=== PATIENT | male | born 1995 | race Caucasian/White ===

== ENCOUNTER 2020-03-14 00:11 | Inpatient (IN) ==
[2020-03-14] MEDS ORDERED: MULTI-VITAMIN INFUSION 10 ML, THIAMINE HCL 100 MG, FOLIC ACID 1 MG in SODIUM CHLORIDE 0... IV ONE (00:43)
[2020-03-14] MEDS ORDERED: LORazepam 1 MG/2 ML VIAL IV STA (00:43)
[2020-03-14] MEDS ORDERED: ONDANSETRON INJ 2 MG/ML 2 ML VIAL IV STA (00:43)
--- NOTE | 2020-03-14 00:57 | Emergency Department Note ---
History of Present Illness General Chief complaint: GI Assessment Stated complaint: ALCOHOL POISOING Time Seen by Provider: 03/14/20 00:33 History of Present Illness Maximum Pain Intensity: 10 This is a 24-year-old male that presents to the emergency department via private vehicle with complaints "alcohol poisoning". A history of alcohol abuse. He notes that he was sober for about 1 year and then over the past 1.5 to 2 months he relapsed. He has been consuming about 1.75 L of vodka per day. Patient notes that he has relapsed before. He notes that he has gone through detox before and with previous withdrawals has had seizures. He notes he has had about 4 seizures in the past secondary to alcohol withdrawal. He has had associated nausea and vomiting over the past 2 weeks that often resolves with consuming alcohol. Patient has decreased food intake. Patient denies any fe vers, chills, chest pain or shortness of breath. He does note some epigastric discomfort. With the vomiting he does note there is some blood in this. Current discomfort at this time is rated as a 10/10. Patient is at his last drink of alcohol was about 24 hours ago. Home Medications Medication Instructions Recorded Confirmed Type No Known Home Medications 03/14/20 03/14/20 History Allergies Allergy/AdvReac Type Severity Reaction Status Date / Time buspirone [From BuSpar] AdvReac Tachycardia Verified 03/14/20 01:16 Past Med/Surg History Medical History Anxiety and depression ETOH abuse Withdrawal seizures Surgical History No significant past surgical history Family History (Updated 03/14/20 @ 04:11 by Amanda Díaz DO) Other No significant family history Social History Smoking Status: Current every day smoker Tobacco Type: Cigarettes Second Hand Exposure: No; Hx Alcohol Use: Yes Alcohol type: hard liquor Hx Substance Use: Yes Last Used Substance: Unknown Preferred Language: Gibraltarian Communication Ability: Effective Skidder Loader Required: No Beliefs That Will Affect Care: None Current Living Situation: Alone Feels Safe at Home: Yes Review of Systems A total of 10 systems reviewed and were otherwise negative Physical Exam Vital Signs Vital Signs - 24 hr 11/17/20 00:17 03/14/20 00:30 03/14/20 00:31 Temperature 37.0 C Temperature Source Oral Pulse Rate 104 H 100 H Pulse Rate from SpO2 Sensor Respiratory Rate 18 16 Respiratory Effort / Characteristics Non-Labored Spontaneous Respiratory Depth Normal Respiratory Pattern Regular Blood Pressure 135/90 137/91 Blood Pressure Mean 105 106 Blood Pressure Position Sitting Pulse Oximetry 94 93 93 Oxygen Delivery Method Room Air Room Air Room Air Sepsis Recent Fever Within 48 Hours No Sepsis New/Unexplained Change in Mental Status No Sepsis Action Taken by Nursing No Action Required 03/14/20 01:00 03/14/20 01:30 03/14/20 02:00 Temperature Temperature Source Pulse Rate 110 H 93 H 93 H Pulse Rate from SpO2 Sensor 94 H 92 H Respiratory Rate 24 19 18 Respiratory Effort / Characteristics Respiratory Depth Respiratory Pattern Blood Pressure 146/110 H 118/84 115/77 Blood Pressure Mean 125 91 93 Blood Pressure Position Pulse Oximetry 91 93 Oxygen Delivery Method Room Air Room Air Room Air Sepsis Recent Fever Within 48 Hours Sepsis New/Unexplained Change in Mental Status Sepsis Action Taken by Nursing 03/14/20 02:30 03/14/20 03:00 03/14/20 03:30 Temperature Temperature Source Pulse Rate 90 91 H 94 H Pulse Rate from SpO2 Sensor 90 92 H 95 H Respiratory Rate 15 16 17 Respiratory Effort / Characteristics Respiratory Depth Respiratory Pattern Blood Pressure 117/64 114/79 122/81 Blood Pressure Mean 73 85 94 Blood Pressure Position Pulse Oximetry 90 90 93 Oxygen Delivery Method Room Air Room Air Room Air Sepsis Recent Fever Within 48 Hours Sepsis New/Unexplained Change in Mental Status Sepsis Action Taken by Nursing VITAL SIGNS - Vital signs and nursing notes were reviewed. Stable and afebrile. GENERAL -24-year-old male appearing his stated age who is in no acute distress but appears to not feel well. Communicates well with provider and answers questions appropriately. SKIN - Without rashes. No meningeal or petechial rash. HEAD - NC/AT. EYES - PERRL with EOMI bilaterally. Sclera anicteric. EARS - No deformities of external structures noted on gross examination bilaterally. NOSE - Midline and without cyanosis. No epistaxis or purulent drainage noted. MOUTH/OROPHARYNX - Without perioral cyanosis. NECK - Neck with FROM. No nuchal rigidity. LUNGS - Chest wall symmetric without accessory muscle use, intercostals retracti ons, or central cyanosis. Normal vesicular breath sounds CTA B/L. No wheezes, rales, or rhonchi appreciated. CARDIAC - RRR with S1/S2. No murmur, rubs, or gallops appreciated. ABDOMEN - Abdominal contour normal without pulsations or visible masses. BS normoactive all four quadrants. Generalized diffuse abdominal tenderness. Abdomen is soft and nonrigid. No palpable masses, hepatosplenomegaly, or ascites noted. EXTREMITIES - No clubbing or peripheral cyanosis. No pretibial edema present. +5/5 strength noted in UE/LE bilaterally. NEUROLOGIC - Cranial nerves II through XII grossly intact. Sensory intact to light touch throughout. PSYCH - A&Ox3 and cooperates fully with examiner. Pt is very pleasant and interacts well with examiner. Course Administered Medications Lactated Ringer's (Lr) 1,000 mls @ 125 mls/hr IV .Q8H CELIA Stop: 03/14/20 20:44 Last Admin: 03/14/20 05:15 Dose: 125 mls/hr Documented by: [id number] Discontinued Medications Diazepam (Diazepam 5 Mg Tablet) 10 mg PO NOW ONE Stop: 03/14/20 04:46 Last Admin: 03/14/20 05:14 Dose: 10 mg Documented by: [id number] Lorazepam (Ativan) 1 mg in 2 mls @ 2 mls/min IV NOW STA Stop: 03/14/20 00:44 Last Admin: 03/14/20 00:57 Dose: 2 mls/min Documented by: [id number] Multivitamins 10 ml/ Thiamine HCl 100 mg/ Folic Acid 1 mg/Sodium Chloride 1,011.2 mls @ 1,011.2 mls/hr IV .Q1H ONE Stop: 03/14/20 01:42 Last Infusion: 03/14/20 02:07 Dose: 0 mls/hr Documented by: [id number] Admin: 03/14/20 00:59 Dose: 999 mls/hr Documented by: [id number] Ondansetron HCl (Ondansetron Inj 2 Mg/Ml 2 Ml Vial) 4 mg IV NOW STA Stop: 03/14/20 00:44 Last Admin: 03/14/20 00:57 Dose: 4 mg Documented by: [id number] Medical Decision Making Laboratory Data Result diagrams: 03/14/20 00:35 03/14/20 00:35 Lab Results 03/14/20 03/14/20 03/14/20 Range/Units 00:35 00:35 00:35 WBC 5.24 (4.8-10.8) K/uL RBC 5.42 (4.7-6.1) M/uL Hgb 16.9 (14.0-18.0) g/dL Hct 48.9 (42-52) % MCV 90.2 (80-100) fL MCH 31.2 (25-34) pg MCHC 34.6 (32-36) g/dL RDW Std Deviation 51.4 H (36.4-46.3) fL RDW Coeff of Sari 15.7 H (11.5-14.5) % Plt Count 215 (130-400) K/uL MPV 9.8 (7.4-10.4) fL Immature Gran % (Auto) 0.4 % Neut % (Auto) 48.2 % Lymph % (Auto) 42.9 % Dare % (Auto) 7.1 % Eos % (Auto) 0.6 % Baso % (Auto) 0.8 % Neut # (Auto) 2.53 (1.4-6.5) K/uL Lymph # (Auto) 2.25 (1.2-3.4) K/uL Dare # (Auto) 0.37 (0.11-0.59) K/uL Eos # (Auto) 0.03 (0-0.5) K/uL Baso # (Auto) 0.04 (0-0.2) K/uL Immature Gran # (Auto) 0.02 (0.00-0.02) K/uL PT 11.3 (9.0-12.0) Seconds INR 1.1 (0.9-1.1) APTT 31.0 (21.0-31.0) Seconds PTT Ratio 1.1 Sodium (136-145) mmol/L Potassium (3.5-5.1) mmol/L Chloride (98-107) mmol/L Carbon Dioxide (21-32) mmol/L Anion Gap (3-11) BUN (7-18) mg/dl Creatinine (0.6-1.4) mg/dl Est Cr Clr Drug Dosing ml/min Est GFR ( Amer) Est GFR (Non-Af Amer) BUN/Creatinine Ratio (10-20) Glucose (70-99) mg/dl Calcium (8.5-10.1) mg/dl Magnesium (1.8-2.4) mg/dl Total Bilirubin (0.2-1) mg/dl AST (15-37) U/L ALT (12-78) U/L Alkaline Phosphatase (45-117) U/L Troponin I (0-0.045) ng/ml Total Protein (6.4-8.2) gm/dl Albumin (3.4-5.0) gm/dl Globulin (2.5-4.0) gm/dl Albumin/Globulin Ratio (0.9-2) Lipase (73-393) U/L TSH (0.300-4.500) uIu/ml Ethyl Alcohol mg/dL 316.7 H (0-3) mg/dl COVID-19 Eval Order SARS-CoV-2, RNA, NAAT (NEGATIVE) 03/14/20 03/14/20 03/14/20 Range/Units 00:35 02:50 02:50 WBC (4.8-10.8) K/uL RBC (4.7-6.1) M/uL Hgb (14.0-18.0) g/dL Hct (42-52) % MCV (80-100) fL MCH (25-34) pg MCHC (32-36) g/dL RDW Std Deviation (36.4-46.3) fL RDW Coeff of Sari (11.5-14.5) % Plt Count (130-400) K/uL MPV (7.4-10.4) fL Immature Gran % (Auto) % Neut % (Auto) % Lymph % (Auto) % Dare % (Auto) % Eos % (Auto) % Baso % (Auto) % Neut # (Auto) (1.4-6.5) K/uL Lymph # (Auto) (1.2-3.4) K/uL Dare # (Auto) (0.11-0.59) K/uL Eos # (Auto) (0-0.5) K/uL Baso # (Auto) (0-0.2) K/uL Immature Gran # (Auto) (0.00-0.02) K/uL PT (9.0-12.0) Seconds INR (0.9-1.1) APTT (21.0-31.0) Seconds PTT Ratio Sodium 140 (136-145) mmol/L Potassium 3.6 (3.5-5.1) mmol/L Chloride 101 (98-107) mmol/L Carbon Dioxide 28 (21-32) mmol/L Anion Gap 11.0 (3-11) BUN 12 (7-18) mg/dl Creatinine 0.90 (0.6-1.4) mg/dl Est Cr Clr Drug Dosing 161.7 ml/min Est GFR ( Amer) 136.1 Est GFR (Non-Af Amer) 117.5 BUN/Creatinine Ratio 13.0 (10-20) Glucose 98 (70-99) mg/dl Calcium 8.8 (8.5-10.1) mg/dl Magnesium 2.3 (1.8-2.4) mg/dl Total Bilirubin 0.5 (0.2-1) mg/dl AST 171 H (15-37) U/L ALT 151 H (12-78) U/L Alkaline Phosphatase 105 (45-117) U/L Troponin I < 0.015 (0-0.045) ng/ml Total Protein 8.1 (6.4-8.2) gm/dl Albumin 4.6 (3.4-5.0) gm/dl Globulin 3.5 (2.5-4.0) gm/dl Albumin/Globulin Ratio 1.3 (0.9-2) Lipase 193 (73-393) U/L TSH 2.860 (0.300-4.500) uIu/ml Ethyl Alcohol mg/dL (0-3) mg/dl COVID-19 Eval Order Covid19 IDNow [facility] SARS-CoV-2, RNA, NAAT NEGATIVE (NEGATIVE) MDM Narrative Patient was seen and evaluated as above in room A3. Review was performed of maria elena sing notes and vital signs. After obtaining a thorough history and physical examination the above work up was performed. Patient presents to us today with a history of alcohol abuse now currently sober for the past 24 hours. He appears to be experiencing alcohol withdrawal. He has been vomiting, and notes blood now in the vomit. He notes a history of seizures from this. No seizures with this current withdrawal episode. Vital signs stable but he is mildly tachycardic. Given the patient's presentation options of care were discussed. Banana bag, IV fluids, IV Ativan was ordered. No leukocytosis or anemia. No emergent metabolic disturbance. Mild elevation of AST and ALT. Alcohol level 316. Covid negative as this was ordered per current protocol for all admitted patients. Case discussed with the hospitalist. He will be admitted for further evaluation and management. Please refer to further documentation regarding his stay. While in the department, I personally reevaluated the patient several times and each time the patient was found to be resting comfortably. The patient was educated upon management, educated upon todays findings/results, educated upon importance of follow up from today's visit, educated upon symptoms in which to return, had questions answered prior to discharge, verbalized understanding, and was discharged home in good condition. EKG was reviewed by myself and found to be Normal Sinus Rhythm at a rate of 94 beats per minute and per my interpretation reveals no ST elevation. QTc 457. No previous for comparison. An order was placed for continuous cardiac monitoring. The monitor shows a rate of 94 with sinus rhythm. GCS: 15 In the evaluation and treatment of this patient the following differential diagnoses were entertained: Alcohol withdrawal, gastritis, esophageal varices, ulcer, perforation, among others. Impression & Plan ETOH abuse, Abnormal LFTs, Vomiting, Alcohol withdrawal Discharge Plan Visit Data Chief Complaint: GI Assessment Stated Complaint: ALCOHOL POISOING ED Provider: Dilia Mahoney ED Midlevel Provider: Lobo Neves Discharge Problem: ETOH abuse, Abnormal LFTs, Vomiting, Alcohol withdrawal Patient Disposition: Admitted As Inpatient Condition: Good Discharge Instructions Interventions: ED Discharge Assessment Last Done: 03/14/20 04:23
[2020-03-14 00:58] LABS: Basophils # (auto) 0.04 K/uL (0-0.2); Basophils % (auto) 0.8 %; Eosinophils # (auto) 0.03 K/uL (0-0.5); Eosinophils % (auto) 0.6 %; Hematocrit (blood only) 48.9 % (42-52); Hemoglobin 16.9 g/dL (14.0-18.0); Immature Granulocytes # (auto) 0.02 K/uL (0.00-0.02); Immature Granulocytes % (auto) 0.4 %; Lymphocytes # (auto) 2.25 K/uL (1.2-3.4); Lymphocytes % (auto) 42.9 %; Mean Corpuscular Hemoglobin 31.2 pg (25-34); Mean Corpuscular Hgb Conc 34.6 g/dL (32-36); Mean Corpuscular Volume 90.2 fL (80-100); Mean Platelet Volume 9.8 fL (7.4-10.4); Monocytes # (auto) 0.37 K/uL (0.11-0.59); Monocytes % (auto) 7.1 %; Neutrophils # (auto) 2.53 K/uL (1.4-6.5); Neutrophils % (auto) 48.2 %; Platelet Count 215 K/uL (130-400); RDW Coefficient of Variation 15.7 % (11.5-14.5); RDW Standard Deviation 51.4 fL (36.4-46.3); Red Blood Count 5.42 M/uL (4.7-6.1); White Blood Count 5.24 K/uL (4.8-10.8)
[2020-03-14 01:04] LABS: Blood Urea Nitrogen 12 mg/dl (7-18); Carbon Dioxide 28 mmol/L (21-32); Chloride 101 mmol/L (98-107); Potassium 3.6 mmol/L (3.5-5.1); Sodium 140 mmol/L (136-145)
[2020-03-14 01:05] LABS: Alanine Aminotransferase 151 U/L (12-78); Albumin Level 4.6 gm/dl (3.4-5.0); Aspartate Aminotransferase 171 U/L (15-37); Calcium 8.8 mg/dl (8.5-10.1); Creatinine Clr Calc Pharmacy 161.7 ml/min; Est GFR (African American) 136.1; Est GFR (Non-African American) 117.5; Glucose 98 mg/dl (70-99); Lipase 193 U/L (73-393); Magnesium 2.3 mg/dl (1.8-2.4)
[2020-03-14 01:09] LABS: INR 1.1 (0.9-1.1); Partial Thromboplastin Ratio 1.1; Prothrombin Time 11.3 Seconds (9.0-12.0)
[2020-03-14 01:16] LABS: Albumin Globulin Ratio 1.3 (0.9-2); Alkaline Phosphatase 105 U/L (45-117); Bilirubin,Total 0.5 mg/dl (0.2-1); Globulin 3.5 gm/dl (2.5-4.0); Total Protein 8.1 gm/dl (6.4-8.2); Troponin I < 0.015 ng/ml (0-0.045)
--- NOTE | 2020-03-14 04:24 | History & Physical Report ---
Date of Service March 14, 2020 Assessment & Plan (1) ETOH abuse: 24yo male with history of EtOH abuse, withdrawal seizures and reported DTs in the past presenting with EtOH withdrawal. Patient reports drinking 1.75L of Vodka daily - last drink approximately 27 hours ago. -Admit to PCU -Valium 10mg PO x 1 dose now -Seizure precautions per protocol -Monitor closely for withdrawal -Check B12, Folate levels -Ativan IV as needed -Thiamine 100mg IV daily -Folic Acid 1mg IV daily -Patient may benefit from additional psychiatric and rehab services after medically cleared Present on Admission?: Yes (2) Anxiety and depression: Patient currently not taking medications. -Continue to monitor Present on Admission?: Yes (3) Abnormal LFTs: Patient with elevated ZCI=874, YFS=653. INR/Bili/Platelets WNL. Most likely secondary to EtOH effects -Repeat LFTs -Check acetaminophen level -Consider liver imaging if worsening Present on Admission?: Yes (4) Vomiting: Patient reports significant nausea and vomiting, PO intolerance. Question of possible hematemesis or coffee ground emesis - not seen in ER -Protonix 40mg IV BID -Monitor for possible UGIB -Zofran PRN F/E/N - Banana bag administered in ER, continue LR at 125mL/hr x 2 liters, monitor electrolytes, NPO for now - may advance diet as tolerated as mental status improves Ppx - Low risk for DVT Code - Full Dispo - Admit to PCU Present on Admission?: Yes History of Present Illness Chief Complaint: EtOH withdrawal Primary Care Provider: NO PCP Jose Roberto Craven is a 24yo C male with history of Anxiety and Depression, EtOH abuse presenting with EtOH withdrawal. Patient with longstanding history of heavy EtOH use - states that he first began drinking heavily at the age of 16. He has history of both DTs and withdrawal seizures. He has been through EtOH rehabilitation on 3 previous occasions. He does consider himself and alcoholic and has participated in AA in the past. Currently does not go to meetings and does not have a local sponsor. Patient had been sober for about one year. However, he had a break-up with his significant other appx 2 months ago and started drinking again. He reports he has been drinking 1.75L of Vodka daily. Last drink was 03/13/20 at 01:00. He has had persistent nausea with multiple episodes of vomiting, ?hematemesis or coffee ground material. He has had diarrhea and constipation and has been unable to tolerate oral intake for the last month. He reports mild withdrawal symptoms currently - mild shaking and flushing. ER Course: Banana Bag, Ativan x 1mg, Zofran x 4mg Allergies Allergy/AdvReac Type Severity Reaction Status Date / Time buspirone [From BuSpar] AdvReac Tachycardia Verified 03/14/20 01:16 Home Medications Medication Instructions Recorded Confirmed Type No Known Home Medications 03/14/20 03/14/20 History Past Med/Surg History Medical History (Updated 03/14/20 @ 04:20 by Amanda Díaz DO) Anxiety and depression ETOH abuse Withdrawal seizures Surgical History (Updated 03/14/20 @ 04:11 by Amanda Díaz DO) No significant past surgical history Family History (Updated 03/14/20 @ 04:11 by Amanda Díaz DO) Other No significant family history Social History (Updated 03/14/20 @ 04:11 by Amanda Díaz DO) Smoking Status: Current every day smoker Tobacco Type: Cigarettes Hx Alcohol Use: Yes Hx Substance Use: No Preferred Language: Cambodian Feels Safe at Home: Yes Review of Systems Review of Systems: All systems reviewed & are unremarkable except as noted in HPI & below Physical Exam Physical Exam: General: patient resting comfortably, NAD, non-toxic in appearance, ill-kempt, AA&O x 3, intoxicated Skin: warm, dry, intact, no rashes or lesions HEENT: NC/AT, PERRL, EOMI, anicteric sclera, conjunctiva without injection, external ear normal to inspection and nontender, nares patent, moist mucus membranes, dentition intact, no oropharyngeal lesions, neck supple, trachea midline, no LAD, no thyromegaly, no JVD Heart: +S1/S2, regular, no m/r/g Lungs: equal air entry bilaterally, no rales/rhonchi/wheezes Abd: +BS, soft, NT/ND, no masses/organomegaly/ascites Ext: warm, 2+ pulses in UE/LE bilaterally, no clubbing/cyanosis or edema Neuro: nonfocal, patient AA&O x 3, speech intact, no facial droop, moving all extremities on command with equal strength 5/5, no tremors Results & Data Results & Data ([facility]) Vital Signs (Past 12 Hours) Vital Signs Temp Pulse Resp BP Pulse Ox 03/14/20 03:30 94 H 17 122/81 93 03/14/20 03:00 91 H 16 114/79 90 03/14/20 02:30 90 15 117/64 90 03/14/20 02:00 93 H 18 115/77 93 03/14/20 01:30 93 H 19 118/84 91 03/14/20 01:00 110 H 24 146/110 H 03/14/20 00:31 93 03/14/20 00:30 100 H 16 137/91 93 03/14/20 00:17 37.0 C 104 H 18 135/90 94 Laboratory Results Lab Results 03/14/20 03/14/20 03/14/20 Range/Units 00:35 00:35 00:35 WBC 5.24 (4.8-10.8) K/uL RBC 5.42 (4.7-6.1) M/uL Hgb 16.9 (14.0-18.0) g/dL Hct 48.9 (42-52) % MCV 90.2 (80-100) fL MCH 31.2 (25-34) pg MCHC 34.6 (32-36) g/dL RDW Std Deviation 51.4 H (36.4-46.3) fL RDW Coeff of Sari 15.7 H (11.5-14.5) % Plt Count 215 (130-400) K/uL MPV 9.8 (7.4-10.4) fL Immature Gran % (Auto) 0.4 % Neut % (Auto) 48.2 % Lymph % (Auto) 42.9 % [place] % (Auto) 7.1 % Eos % (Auto) 0.6 % Baso % (Auto) 0.8 % Neut # (Auto) 2.53 (1.4-6.5) K/uL Lymph # (Auto) 2.25 (1.2-3.4) K/uL [place] # (Auto) 0.37 (0.11-0.59) K/uL Eos # (Auto) 0.03 (0-0.5) K/uL Baso # (Auto) 0.04 (0-0.2) K/uL Immature Gran # (Auto) 0.02 (0.00-0.02) K/uL PT 11.3 (9.0-12.0) Seconds INR 1.1 (0.9-1.1) APTT 31.0 (21.0-31.0) Seconds PTT Ratio 1.1 Sodium (136-145) mmol/L Potassium (3.5-5.1) mmol/L Chloride (98-107) mmol/L Carbon Dioxide (21-32) mmol/L Anion Gap (3-11) BUN (7-18) mg/dl Creatinine (0.6-1.4) mg/dl Est Cr Clr Drug Dosing ml/min Est GFR ( Amer) Est GFR (Non-Af Amer) BUN/Creatinine Ratio (10-20) Glucose (70-99) mg/dl Calcium (8.5-10.1) mg/dl Magnesium (1.8-2.4) mg/dl Total Bilirubin (0.2-1) mg/dl AST (15-37) U/L ALT (12-78) U/L Alkaline Phosphatase (45-117) U/L Troponin I (0-0.045) ng/ml Total Protein (6.4-8.2) gm/dl Albumin (3.4-5.0) gm/dl Globulin (2.5-4.0) gm/dl Albumin/Globulin Ratio (0.9-2) Lipase (73-393) U/L TSH (0.300-4.500) uIu/ml Ethyl Alcohol mg/dL 316.7 H (0-3) mg/dl COVID-19 Eval Order SARS-CoV-2, RNA, NAAT (NEGATIVE) 03/14/20 03/14/20 03/14/20 Range/Units 00:35 02:50 02:50 WBC (4.8-10.8) K/uL RBC (4.7-6.1) M/uL Hgb (14.0-18.0) g/dL Hct (42-52) % MCV (80-100) fL MCH (25-34) pg MCHC (32-36) g/dL RDW Std Deviation (36.4-46.3) fL RDW Coeff of Sari (11.5-14.5) % Plt Count (130-400) K/uL MPV (7.4-10.4) fL Immature Gran % (Auto) % Neut % (Auto) % Lymph % (Auto) % [place] % (Auto) % Eos % (Auto) % Baso % (Auto) % Neut # (Auto) (1.4-6.5) K/uL Lymph # (Auto) (1.2-3.4) K/uL [place] # (Auto) (0.11-0.59) K/uL Eos # (Auto) (0-0.5) K/uL Baso # (Auto) (0-0.2) K/uL Immature Gran # (Auto) (0.00-0.02) K/uL PT (9.0-12.0) Seconds INR (0.9-1.1) APTT (21.0-31.0) Seconds PTT Ratio Sodium 140 (136-145) mmol/L Potassium 3.6 (3.5-5.1) mmol/L Chloride 101 (98-107) mmol/L Carbon Dioxide 28 (21-32) mmol/L Anion Gap 11.0 (3-11) BUN 12 (7-18) mg/dl Creatinine 0.90 (0.6-1.4) mg/dl Est Cr Clr Drug Dosing 161.7 ml/min Est GFR ( Amer) 136.1 Est GFR (Non-Af Amer) 117.5 BUN/Creatinine Ratio 13.0 (10-20) Glucose 98 (70-99) mg/dl Calcium 8.8 (8.5-10.1) mg/dl Magnesium 2.3 (1.8-2.4) mg/dl Total Bilirubin 0.5 (0.2-1) mg/dl AST 171 H (15-37) U/L ALT 151 H (12-78) U/L Alkaline Phosphatase 105 (45-117) U/L Troponin I < 0.015 (0-0.045) ng/ml Total Protein 8.1 (6.4-8.2) gm/dl Albumin 4.6 (3.4-5.0) gm/dl Globulin 3.5 (2.5-4.0) gm/dl Albumin/Globulin Ratio 1.3 (0.9-2) Lipase 193 (73-393) U/L TSH 2.860 (0.300-4.500) uIu/ml Ethyl Alcohol mg/dL (0-3) mg/dl COVID-19 Eval Order Covid19 [facility]Now [facility] SARS-CoV-2, RNA, NAAT NEGATIVE (NEGATIVE) PG Care Time/CCT Total # of Minutes Spent Total Time Spent with Patient: Total time spent is greater than 50% in coordination of care (as documented) at patient's floor/unit and/or counseling patient: Coding Level of Care Code 07747 Initial Inpt Care Lvl 3 Diagnoses ETOH abuse F10.10 Anxiety and depression F41.9; F32.9 Abnormal LFTs R94.5 Vomiting R11.2 Vomiting type: unspecified Vomiting Intractability: non-intractable Nausea presence: with nausea (1) Vomiting Vomiting type: unspecified Vomiting Intractability: non-intractable Nausea presence: with nausea Qualified Code(s): R11.2 - Nausea with vomiting, unspecified
[2020-03-14] MEDS ORDERED: ONDANSETRON INJ 2 MG/ML 2 ML VIAL IV PRN (04:45)
[2020-03-14] MEDS ORDERED: diazePAM 5 MG TABLET PO ONE (04:45)
[2020-03-14] MEDS: LACTATED RINGER'S 1,000 ML IV SCH ×2 (05:15→13:04)
--- NOTE | 2020-03-14 07:34 | XRay Report ---
SINGLE VIEW CHEST CLINICAL HISTORY: Vomiting. Alcohol withdrawal. FINDINGS: An AP, portable, upright chest radiograph is obtained. No prior studies are available for c omparison at the time of dictation. The cardiomediastinal silhouette is unremarkable. The lungs and pleural spaces are clear. No pneumothorax is seen. The bony thorax is grossly intact. IMPRESSION: No active disease in the chest. ACT 112: Negative or not required by law. Electronically signed by: Harman Ansari M.D. 03/14/2020 7:33 AM
[2020-03-14] MEDS: PANTOprazole 40 MG in SYRINGE 0 ML IV SCH ×2 (07:50→21:32)
[2020-03-14] MEDS: FOLIC ACID 1 MG in SYRINGE 9.8 ML IV SCH (07:50)
[2020-03-14] MEDS: THIAMINE HCL 100 MG in SYRINGE 9 ML IV SCH (07:50)
[2020-03-14] MEDS ORDERED: GABAPENTIN 1200MG ALCOHOL WITHDRAWAL LOAD PO STA (08:16)
--- NOTE | 2020-03-14 08:16 | Hospitalist Progress Note ---
Date of Service March 14, 2020 Assessment & Plan (1) ETOH abuse: 24yo male with history of EtOH abuse, withdrawal seizures and reported DTs in the past presenting with EtOH withdrawal. Patient reports drinking 1.75L of Vodka daily - last drink approximately 27 hours prior to admission -Due to previous history of DTs was started on gabapentin protocol in addition to the AURA S Ativan. He has not required significant Ativan during the day -Seizure precautions per protocol -Thiamine 100mg IV daily -Folic Acid 1mg IV daily -Patient may benefit from additional psychiatric and rehab services after medically cleared, patient has been inpatient in both [facility] and [email or web address] (2) Anxiety and depression: Patient currently not taking medications. -Continue to monitor (3) Abnormal LFTs: Patient with elevated HTJ=578, QCM=890. INR/Bili/Platelets WNL. Most likely secondary to EtOH effects -Repeat LFTs acetaminophen level undetectable Monitor repeat serology for LFTs (4) Vomiting: Patient reports significant nausea and vomiting, PO intolerance. Question of possible hematemesis or coffee ground emesis - not seen in ER -Protonix 40mg IV BID -Monitor for possible UGIB -Zofran PRN F/E/N - Banana bag administered in ER, continue LR at 125mL/hr x 2 liters, monitor electrolytes, NPO for now - may advance diet as tolerated as mental status improves Ppx - Low risk for DVT Code - Full Dispo - Admit to PCU Admission and Anticipated Discharge Date Admission Date: March 14, 2020 Subjective pt is not significantly tremulous or agitated, he does realate to going into full blown DT in the past, however he has stable VS and exam at this point. He states he started drinking due to a breakup with a significant other Review of Systems Review of Systems: Mild distress and fatigue no headache, blurry or double vision no speech or swallowing issues no chest pain, pressure or palpitations no shortness of breath, cough or wheezes Minor central abdominal pain, but no nausea or vomiting, no melena no dysuria, hematuria or frequency no focal joint pain or swelling no back pain, CVA tenderness or radicular pain no bruising, bleeding or rashes no focal signs of weakness or numbness or altered sensation Does have anxiety and depression at this point time Physical Exam Physical Exam: The patient appeared well nourished and normally developed. Vital signs as documented. Head exam is normocephalic atraumatic no scleral icterus Neck is without JVD, thyromegaly, or carotid bruits. Lungs are clear to auscultation, no focal loss of breath sounds Cardiac exam, Rhythm is regular.. No murmurs, rubs or gallops. Abdominal exam reveals normal bowel sounds, soft non tender, no masses Extremities are nonedematous and both pedal pulses are present Neurologic exam is alert and oriented, no focal loss of strength or sensation no tremor no shakiness Skin is without bruises or rashes Psychologically is with concerns for anxiety & depression. Results & Data Results & Data ([facility]) Vital Signs (Past 12 Hours) Vital Signs Temp Pulse Pulse Resp BP BP Pulse Ox 03/14/20 07:08 97.9 F 98 H 18 117/76 93 03/14/20 04:55 97.9 F 16 123/77 96 03/14/20 04:00 90 14 111/72 92 03/14/20 03:30 94 H 17 122/81 93 03/14/20 03:00 91 H 16 114/79 90 03/14/20 02:30 90 15 117/64 90 03/14/20 02:00 93 H 18 115/77 93 03/14/20 01:30 93 H 19 118/84 91 03/14/20 01:00 110 H 24 146/110 H 03/14/20 00:31 93 03/14/20 00:30 100 H 16 137/91 93 03/14/20 00:17 98.6 F 104 H 18 135/90 94 PG Care Time/CCT Total # of Minutes Spent Total Time Spent with Patient: Total time spent is greater than 50% in coordination of care (as documented) at patient's floor/unit and/or counseling patient: Coding Level of Care Code 79640 Subseq Hosp Care Lvl 3 Diagnoses ETOH abuse F10.10 Anxiety and depression F41.9; F32.9 Abnormal LFTs R94.5 Vomiting R11.10
[2020-03-14] MEDS ORDERED: GABAPENTIN 600 MG TAB PO ONE (08:30)
[2020-03-14 10:07] LABS: Amphetamines+Metham, Urine Neg (Neg); Barbiturates, Urine Neg (Neg); Benzodiazepine, Urine Pos (Neg); Cocaine, Urine Neg (Neg); MDMA (Ecstacy), Urine Neg (Neg); Methadone, Urine Neg (Neg); Opiate, Urine Neg (Neg); Phencyclidine, Urine Neg (Neg)
[2020-03-14] MEDS: LORazepam 1 MG TAB PO PRN ×3 (12:59→22:55)
[2020-03-14] MEDS: GABAPENTIN 600 MG TAB PO SCH ×2 (14:43→21:32)
--- NOTE | 2020-03-14 16:52 | Electrocardiogram Report ---
Test Reason : Blood Pressure : / mmHG Vent. Rate : 094 BPM Atrial Rate : 094 BPM P-R Int : 170 ms QRS Dur : 104 ms QT Int : 366 ms P-R-T Axes : 049 057 047 degrees QTc Int : 457 ms Normal sinus rhythm Normal ECG No previous ECGs available Confirmed by Dale Mann [id number] on 03/14/2020 4:51:41 PM Referred By: REFERRED SELF Confirmed By:Dale Mann
[2020-03-15] MEDS ORDERED: GABAPENTIN 600 MG TAB PO SCH (06:00)
[2020-03-15 08:38] LABS: Albumin Level 3.6 gm/dl (3.4-5.0); BUN Creatinine Ratio 10.4 (10-20); Bilirubin Direct 0.4 mg/dl (0-0.2); Calcium 8.9 mg/dl (8.5-10.1); Creatinine Clr Calc Pharmacy 173.6 ml/min; Est GFR (African American) 140.1; Est GFR (Non-African American) 120.8; Potassium 3.6 mmol/L (3.5-5.1)
[2020-03-15] MEDS: PANTOprazole 40 MG in SYRINGE 0 ML IV SCH (08:42)
[2020-03-15] MEDS: FOLIC ACID 1 MG in SYRINGE 9.8 ML IV SCH (08:43)
[2020-03-15] MEDS: THIAMINE HCL 100 MG in SYRINGE 9 ML IV SCH (08:43)
[2020-03-15 08:46] LABS: Bilirubin,Total 1.2 mg/dl (0.2-1); Total Protein 6.6 gm/dl (6.4-8.2)
--- NOTE | 2020-03-15 16:32 | Discharge Summary ---
Date of Service March 15, 2020 Admission HPI Per Admitting Provider Jose Roberto Craven is a 24yo C male with history of Anxiety and Depression, EtOH abuse presenting with EtOH withdrawal. Patient with longstanding history of heavy EtOH use - states that he first began drinking heavily at the age of 16. He has history of both DTs and withdrawal seizures. He has been through EtOH rehabilitation on 3 previous occasions. He does consider himself and alcoholic and has participated in AA in the past. Currently does not go to meetings and does not have a local sponsor. Patient had been sober for about one year. However, he had a break-up with his significant other appx 2 months ago and started drinking again. He reports he has been drinking 1.75L of Vodka daily. Last drink was 03/13/20 at 01:00. He has had persistent nausea with multiple episodes of vomiting, ?hematemesis or coffee ground material. He has had diarrhea and constipation and has been unable to tolerate oral intake for the last month. He reports mild withdrawal symptoms currently - mild shaking and flushing. ER Course: Banana Bag, Ativan x 1mg, Zofran x 4mg Principal Diagnosis alcohol withdrawal Discharge Exam The patient appeared well Vital signs as documented. Lungs are clear to auscultation and appear unlabored Cardiac exam, Rhythm is regular.. No murmurs, rubs or gallops. Abdominal exam reveals normal bowel sounds, soft non tender, no masses Extremities are nonedematous and both pedal pulses are normal. Neurologic exam is alert and oriented, no focal loss of strength or sensation Skin is without bruises or rashes Psychologically is without concerns for anxiety or depression. Discharge Data Allergies Allergy/AdvReac Type Severity Reaction Status Date / Time buspirone [From BuSpar] AdvReac Tachycardia Verified 03/14/20 01:16 Consultations 03/14/20 01:28 ED Decision to Admit Stat Hospital Course (1) ETOH abuse: 24yo male with history of EtOH abuse, withdrawal seizures and reported DTs in the past presenting with EtOH withdrawal. Patient reports drinking 1.75L of Vodka daily - last drink approximately 27 hours prior to admission -Due to previous history of DTs was started on gabapentin protocol, will be discharged on tapering doses, given 7 10 mg librium tabs and information for outpt aa meetings (2) Anxiety and depression: Patient currently not taking medications. -pt is not interested in restarting these (3) Abnormal LFTs: slowly coming down as expected acetaminophen level undetectable Monitor repeat serology for LFTs (4) Vomiting: resolved Code - Full Total Time Total Time Spent Total Time Spent (In Minutes): It required greater than 30 minutes to prepare this patient for discharge Discharge Plan Discharge Items Patient Disposition: Home - Self-Care Reason For Visit: ETOH WITHDRAWAL Discharge Diagnosis: alcohol withdrawal Condition on Discharge: Good Activity: Per Instructions section Non-emergency contact: Primary Care Provider Call non-emergency contact if: your symptoms worsen Follow-up/Referrals: PCP,NO [Primary Care Provider] - Diet: Regular Addtl Attending Provider Instructions: please contact AA as soon as able follow up with your primary care in one week Pending Studies at Discharge: No Stand-Alone Forms: My [employer], Smoking Cessation Medications and DC Order Prescriptions: New gabapentin 600 mg tablet 600 mg PO UD Qty: 12 RF: 0 chlordiazepoxide HCl 10 mg capsule 10 mg PO TID PRN (Reason: anxiety) Qty: 7 RF: 0 No Action No Known Home Medications RF: 0 Discharge Orders: Discharge Order (Routine); Ordered 03/15/20 Ordered By: Domingo Benitez/Other Patient Handouts: Alcoholism How to be Part of the ..., Alcoholism Resources Admission Data Admit Date/Time: 03/14/20 03:41 Attending Provider: Domingo Irwin Admit Provider: Amanda Díaz Primary Care Provider: PCP,NO Other Providers: Amanda Díaz Other Interventions: Discharge Summary Assessment (RN) Last Done: 03/15/20 10:29 Coding Level of Care Code D/C Day Management >30 mins Diagnoses ETOH abuse F10.10 Anxiety and depression F41.9; F32.9 Abnormal LFTs R94.5 Vomiting R11.10
[2020-03-16 08:07] LABS: 7-Aminoclonaz, Confirm NEGATIVE ng/mL (<25); Hydro-Alp Ur, GC/MS NEGATIVE ng/mL (<25); Hydroxyethylflurazepam, Conf NEGATIVE ng/mL (<50); Hydroxymidazolam Ur, GC/MS NEGATIVE ng/mL (<50); Hydroxytriazolam NEGATIVE ng/mL (<50); Lorazepam, Ur GC/MS 634 ng/mL (<50); Nordiazepam, Confirm NEGATIVE ng/mL (<50); Oxazepam Ur, GC/MS NEGATIVE ng/mL (<50); Temazepam, Confirm 99 ng/mL (<50)
[2020-03-16] MEDS ORDERED: GABAPENTIN 600 MG TAB PO SCH (10:00)
[2020-03-17] MEDS ORDERED: GABAPENTIN 600 MG TAB PO SCH (22:00)
== END 2020-03-15 10:53 | disposition home or self-care (01) | DRG 897 ==
LOC: ED 00:11 → SUATTDRO 03:41 → 2S 03:41

== ENCOUNTER 2020-03-24 12:11 | Inpatient (IN) ==
[2020-03-24] MEDS ORDERED: ATIVAN IV ALCOHOL WITHDRAWL IV PRN (12:44)
[2020-03-24] MEDS ORDERED: LORazepam 3 MG/6 ML VIAL IV PRN (12:44)
[2020-03-24] MEDS ORDERED: LORazepam 1 MG/2 ML VIAL IV PRN (12:44)
[2020-03-24] MEDS ORDERED: MULTI-VITAMIN INFUSION 10 ML, THIAMINE HCL 100 MG, FOLIC ACID 1 MG in SODIUM CHLORIDE 0... IV ONE (12:44)
[2020-03-24] MEDS ORDERED: LORazepam 2 MG/4 ML VIAL IV PRN (12:44)
--- NOTE | 2020-03-24 13:10 | Emergency Department Note ---
Impression & Plan Alcohol withdrawal, Withdrawal seizures, Hypomagnesemia, Dehydration, Hypokalemia ED Provider Note NAME: DHARA ROBERTS AGE: 24 SEX: M : 1995 ARRIVES VIA: Walk-In INFORMANT: Patient, ED PROVIDER(S): Bill Gore MD Chief Complaint: Alcohol withdrawal, seizure HPI: Patient does present with concern for alcohol withdrawal and the possibility of seizure. The patient does have a prior history of drinking 1.75 L of vodka per day. Patient had had clinical sobriety for approximately 1 year relapse approximately a month and a half ago due to some personal issues. The patient states that he was admitted to the hospital discharged was feeling improved and the patient was feeling bad this morning around 03 100 and drinks of gin to try to improve his shakiness. The patient was found on the ground after a presumptive seizure per the patient. Patient does complain of some formication and visual hallucinations. The patient states he denies any SI, HI. Patient was seen on March 14. Patient was discharged on March 15. Patient reportedly was started on gabapentin protocol and discharged on Librium taper doses. ROS: See HPI for pertinent positives and negatives. A total of 10 systems were reviewed and otherwise negative. Past medical history: See below Surgical history: See below Social history: See below Physical Exam: GENERAL: Anxious in appearance, mildly distressed. EYE EXAM: Normal conjunctiva. PERRL, no anisocoria and EOM's grossly intact w/o pain. NECK: Supple, no nuchal rigidity, no adenopathy, non-tender. No signs of meningismus. LUNGS: Clear to auscultation. Normal chest wall mechanics. HEART: NSR, no MRG. ABDOMEN: Abdomen soft, non-tender, normo-active bowel sounds, no masses, no rebound or guarding. BACK: No CVA TTP. SKIN: No rashes and no bruising. UPPER EXTREMITIES: Bilateral upper extremity tremors noted no extinction with intention, otherwise upper extremities are grossly normal. LOWER EXTREMITIES: Grossly normal, no edema. NEURO EXAM: A&O x3, cranial nerves II-XII grossly intact, normal speech, moves all 4 extremities on command w/o issue. [Good finger to nose, no drift, no sensory deficits.] Differential diagnoses: Infection, dehydration, metabolic abnormality, hypo/hyperglycemia, electrolyte disturbance, anemia, hypoxia, cardiac sources, intracerebral event, toxicologic, neurologic, as well as other pathologies. Course: Patient was seen and evaluated the bedside. Full history physical exam was performed. EKG: Indication: Weakness Imaging Studies: Radiology results as stated below per my review in the radiologist's interpretation: Cardiac monitoring: An order was placed for continuous cardiac monitoring. The monitor shows a rate of 102 with sinus rhythm. MDM: Patient does present with concern for possible alcohol withdrawal related seizures. Blood work was obtained patient was given banana bag ,Valium, and as needed Ativan. Patient has a nonfocal neurologic exam denies any infectious symptoms does not meningitic. Do not believe he requires CT of the head or LP at this time. The patient did relate that he never picked up his Librium taper at discharge as the patient does not have any money to obtain this. Patient was ordered additional Valium and antiemetics. The patient has a normal white count with a hemoglobin of 14. The patient's platelet count is tracely abnormal at 129. The patient's kidney function is unremarkable with slight anion gap at 12 and hypokalemia 3.3. Patient does have changes in his liver function testing which is likely consistent with the patient's alcohol abuse. The patient did have a positive alcohol level although tracely positive at this time. Salicylate and acetaminophen negative. Rapid Covid negative. Given the patient's delirium and associated alcohol use I did recommend that the patient be admitted to the medicine service. I did speak with Dr. Mcdowell and the patient was admitted to the medicine service. Magnesium and potassium replacement were ordered. Critical Care: I have personally spent 47 minutes of critical care time in direct management of this patient. This includes bedside care, interpretation of diagnostic studies, and testing, discussion with consultants, patient, and family members, and other require inpatient management activities. This 47 minutes is in excess of all separately billable procedures. 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 Beliefs That Will Affect Care: None Current Living Situation: Alone Feels Safe at Home: Yes Assistive Devices: None Allergies Allergies Allergy/AdvReac Type Severity Reaction Status Date / Time hydroxyzine [From Vistaril] AdvReac Severe Tachycardia Unverified 03/24/20 14:47 buspirone [From BuSpar] AdvReac Tachycardia Verified 03/14/20 01:16 Home Meds Previous Rx's Medication Instructions Recorded chlordiazepoxide HCl 10 mg PO TID PRN #7 cap 03/15/20 gabapentin 600 mg PO UD #12 tab 03/15/20 Results & Data (ED) Vital Signs Vital Signs - 24 hr 03/24/20 12:39 03/24/20 13:06 03/24/20 13:35 Temperature 36.5 C Temperature Source Oral Pulse Rate 91 H Pulse Rate [Right Finger] 102 H 91 H Respiratory Rate 18 16 20 Respiratory Effort / Characteristics Non-Labored Spontaneous Non-Labored Non-Labored Respiratory Depth Normal Normal Normal Respiratory Pattern Regular Blood Pressure 149/92 H Blood Pressure [Right Arm] 151/89 H 141/93 H Blood Pressure Mean 111 Blood Pressure Mean [Right Arm] 109 109 Pulse Oximetry 95 96 97 Oxygen Delivery Method Room Air Room Air Room Air Oxygen Flow Rate Sepsis Recent Fever Within 48 Hours No Sepsis New/Unexplained Change in Mental Status No Sepsis Action Taken by Nursing No Action Required 03/24/20 13:49 03/24/20 14:15 03/24/20 14:48 Temperature Temperature Source Pulse Rate 88 Pulse Rate [Right Finger] 106 H 90 95 H Respiratory Rate 20 18 18 Respiratory Effort / Characteristics Non-Labored Respiratory Depth Normal Respiratory Pattern Blood Pressure Blood Pressure [Right Arm] 126/81 122/77 127/82 Blood Pressure Mean Blood Pressure Mean [Right Arm] 96 92 97 Pulse Oximetry 97 94 96 Oxygen Delivery Method Room Air Nasal Cannula Nasal Cannula Oxygen Flow Rate 2 Sepsis Recent Fever Within 48 Hours Sepsis New/Unexplained Change in Mental Status Sepsis Action Taken by Nursing 03/24/20 15:43 03/24/20 17:04 03/24/20 18:06 Temperature Temperature Source Pulse Rate Pulse Rate [Right Finger] 108 H 96 H 92 H Respiratory Rate 24 18 16 Respiratory Effort / Characteristics Non-Labored Respiratory Depth Normal Respiratory Pattern Blood Pressure Blood Pressure [Right Arm] 128/95 130/90 140/88 Blood Pressure Mean Blood Pressure Mean [Right Arm] 106 103 105 Pulse Oximetry 96 94 95 Oxygen Delivery Method Room Air Room Air Room Air Oxygen Flow Rate Sepsis Recent Fever Within 48 Hours Sepsis New/Unexplained Change in Mental Status Sepsis Action Taken by Nursing 03/24/20 18:45 Temperature Temperature Source Pulse Rate Pulse Rate [Right Finger] 97 H Respiratory Rate 12 Respiratory Effort / Characteristics Respiratory Depth Respiratory Pattern Blood Pressure Blood Pressure [Right Arm] 132/84 Blood Pressure Mean Blood Pressure Mean [Right Arm] 100 Pulse Oximetry 96 Oxygen Delivery Method Room Air Oxygen Flow Rate Sepsis Recent Fever Within 48 Hours Sepsis New/Unexplained Change in Mental Status Sepsis Action Taken by Fdc Medications Current Medication List: was personally reviewed by me Laboratory Data Attestation: I reviewed the patient's lab results. Result diagrams: 03/24/20 13:21 03/24/20 13:21 Lab Results 03/24/20 03/24/20 03/24/20 Range/Units 13:21 13:21 13:21 WBC 5.12 (4.8-10.8) K/uL RBC 4.60 L (4.7-6.1) M/uL Hgb 14.4 (14.0-18.0) g/dL Hct 41.6 L (42-52) % MCV 90.4 (80-100) fL MCH 31.3 (25-34) pg MCHC 34.6 (32-36) g/dL RDW Std Deviation 51.2 H (36.4-46.3) fL RDW Coeff of Sari 15.5 H (11.5-14.5) % Plt Count 129 L (130-400) K/uL MPV 9.9 (7.4-10.4) fL Immature Gran % (Auto) 0.2 % Neut % (Auto) 80.5 % Lymph % (Auto) 7.4 % Bullitt % (Auto) 11.5 % Eos % (Auto) 0.0 % Baso % (Auto) 0.4 % Neut # (Auto) 4.12 (1.4-6.5) K/uL Lymph # (Auto) 0.38 L (1.2-3.4) K/uL Bullitt # (Auto) 0.59 (0.11-0.59) K/uL Eos # (Auto) 0.00 (0-0.5) K/uL Baso # (Auto) 0.02 (0-0.2) K/uL Immature Gran # (Auto) 0.01 (0.00-0.02) K/uL Sodium 137 (136-145) mmol/L Potassium 3.3 L (3.5-5.1) mmol/L Chloride 100 (98-107) mmol/L Carbon Dioxide 25 (21-32) mmol/L Anion Gap 12.0 H (3-11) BUN 12 (7-18) mg/dl Creatinine 0.89 (0.6-1.4) mg/dl Est Cr Clr Drug Dosing 163.5 ml/min Est GFR ( Amer) 136.8 Est GFR (Non-Af Amer) 118.0 BUN/Creatinine Ratio 14.0 (10-20) Glucose 79 (70-99) mg/dl Calcium 8.8 (8.5-10.1) mg/dl Phosphorus 2.8 (2.5-4.9) mg/dl Magnesium 1.3 L (1.8-2.4) mg/dl Total Bilirubin 1.1 H (0.2-1) mg/dl AST 120 H (15-37) U/L ALT 98 H (12-78) U/L Alkaline Phosphatase 89 (45-117) U/L Total Protein 7.8 (6.4-8.2) gm/dl Albumin 4.3 (3.4-5.0) gm/dl Globulin 3.5 (2.5-4.0) gm/dl Albumin/Globulin Ratio 1.2 (0.9-2) TSH 1.650 (0.300-4.500) uIu/ml Salicylates < 1.7 L (2.8-20) mg/dl Acetaminophen < 2 L (10-30) ug/ml Ethyl Alcohol mg/dL (0-3) mg/dl 03/24/20 Range/Units 13:21 WBC (4.8-10.8) K/uL RBC (4.7-6.1) M/uL Hgb (14.0-18.0) g/dL Hct (42-52) % MCV (80-100) fL MCH (25-34) pg MCHC (32-36) g/dL RDW Std Deviation (36.4-46.3) fL RDW Coeff of Sari (11.5-14.5) % Plt Count (130-400) K/uL MPV (7.4-10.4) fL Immature Gran % (Auto) % Neut % (Auto) % Lymph % (Auto) % Bullitt % (Auto) % Eos % (Auto) % Baso % (Auto) % Neut # (Auto) (1.4-6.5) K/uL Lymph # (Auto) (1.2-3.4) K/uL Bullitt # (Auto) (0.11-0.59) K/uL Eos # (Auto) (0-0.5) K/uL Baso # (Auto) (0-0.2) K/uL Immature Gran # (Auto) (0.00-0.02) K/uL Sodium (136-145) mmol/L Potassium (3.5-5.1) mmol/L Chloride (98-107) mmol/L Carbon Dioxide (21-32) mmol/L Anion Gap (3-11) BUN (7-18) mg/dl Creatinine (0.6-1.4) mg/dl Est Cr Clr Drug Dosing ml/min Est GFR ( Amer) Est GFR (Non-Af Amer) BUN/Creatinine Ratio (10-20) Glucose (70-99) mg/dl Calcium (8.5-10.1) mg/dl Phosphorus (2.5-4.9) mg/dl Magnesium (1.8-2.4) mg/dl Total Bilirubin (0.2-1) mg/dl AST (15-37) U/L ALT (12-78) U/L Alkaline Phosphatase (45-117) U/L Total Protein (6.4-8.2) gm/dl Albumin (3.4-5.0) gm/dl Globulin (2.5-4.0) gm/dl Albumin/Globulin Ratio (0.9-2) TSH (0.300-4.500) uIu/ml Salicylates (2.8-20) mg/dl Acetaminophen (10-30) ug/ml Ethyl Alcohol mg/dL 10.0 H (0-3) mg/dl Administered Medications Magnesium Sulfate/Dextrose (Magnesium Sulfate / D5w) 1 gm in 100 mls @ 50 mls/hr IV Q2H CELIA Stop: 03/24/20 21:25 Last Admin: 03/24/20 19:44 Dose: 50 mls/hr Documented by: [id number] Infusion: 03/24/20 19:44 Dose: 50 mls/hr Documented by: [id number] Admin: 03/24/20 18:43 Dose: 50 mls/hr Documented by: [id number] Discontinued Medications Diazepam (Diazepam 5 Mg/Ml Inj 10ml Vial) 5 mg IV NOW STA Stop: 03/24/20 12:45 Last Admin: 03/24/20 13:07 Dose: 5 mg Documented by: [id number] Diazepam (Diazepam 5 Mg/Ml Inj 10ml Vial) 5 mg IV NOW STA Stop: 03/24/20 14:56 Last Admin: 03/24/20 15:08 Dose: 5 mg Documented by: [id number] Multivitamins 10 ml/ Thiamine HCl 100 mg/ Folic Acid 1 mg/Sodium Chloride 1,011.2 mls @ 500 mls/hr IV .Q2H2M ONE Stop: 03/24/20 14:45 Last Infusion: 03/24/20 15:50 Dose: 0 mls/hr Documented by: [id number] Admin: 03/24/20 13:33 Dose: 500 mls/hr Documented by: [id number] Lorazepam (Ativan) 1 mg in 2 mls @ 2 mls/min IV UD PRN; Protocol PRN Reason: EtOH Withdrawl AWSS Score 6,7 Stop: 04/23/20 12:43 Last Admin: 03/24/20 13:58 Dose: 2 mls/min Documented by: [id number] Sodium Chloride (Nss 1000ml) 1,000 mls @ 999 mls/hr IV .Q1H1M ONE Stop: 03/24/20 17:47 Last Admin: 03/24/20 16:15 Dose: 999 mls/hr Documented by: [id number] Ondansetron HCl (Ondansetron Inj 2 Mg/Ml 2 Ml Vial) 4 mg IV NOW STA Stop: 03/24/20 14:57 Last Admin: 03/24/20 15:08 Dose: 4 mg Documented by: [id number] Discharge Plan Visit Data Chief Complaint: Alcohol Withdrawal Stated Complaint: ALCOHOL WITHDRAWAL ED Provider: Bill Gore Discharge Problem: Alcohol withdrawal, Withdrawal seizures, Hypomagnesemia, Dehydration, Hypokalemia Patient Disposition: Admitted As Inpatient Discharge Instructions Interventions: ED Discharge Assessment Last Done: 03/24/20 19:51 Discharge Problem: Alcohol withdrawal Qualifiers: Complication of substance-induced condition: with delirium Qualified Code(s): F10.231 - Alcohol dependence with withdrawal delirium Withdrawal seizures Qualifiers: Complication of substance-induced condition: with delirium Qualified Code(s): F19.231 - Other psychoactive substance dependence with withdrawal delirium
[2020-03-24 13:38] LABS: Basophils # (auto) 0.02 K/uL (0-0.2); Basophils % (auto) 0.4 %; Hematocrit (blood only) 41.6 % (42-52); Hemoglobin 14.4 g/dL (14.0-18.0); Immature Granulocytes # (auto) 0.01 K/uL (0.00-0.02); Immature Granulocytes % (auto) 0.2 %; Lymphocytes # (auto) 0.38 K/uL (1.2-3.4); Lymphocytes % (auto) 7.4 %; Mean Corpuscular Hemoglobin 31.3 pg (25-34); Mean Corpuscular Hgb Conc 34.6 g/dL (32-36); Mean Corpuscular Volume 90.4 fL (80-100); Mean Platelet Volume 9.9 fL (7.4-10.4); Monocytes # (auto) 0.59 K/uL (0.11-0.59); Monocytes % (auto) 11.5 %; Neutrophils # (auto) 4.12 K/uL (1.4-6.5); Neutrophils % (auto) 80.5 %; Platelet Count 129 K/uL (130-400); RDW Coefficient of Variation 15.5 % (11.5-14.5); RDW Standard Deviation 51.2 fL (36.4-46.3); White Blood Count 5.12 K/uL (4.8-10.8)
[2020-03-24 14:03] LABS: Acetaminophen < 2 ug/ml (10-30); Salicylate < 1.7 mg/dl (2.8-20)
[2020-03-24 14:04] LABS: Albumin Level 4.3 gm/dl (3.4-5.0); Calcium 8.8 mg/dl (8.5-10.1); Creatinine Clr Calc Pharmacy 163.5 ml/min; Est GFR (African American) 136.8; Magnesium 1.3 mg/dl (1.8-2.4); Potassium 3.3 mmol/L (3.5-5.1)
[2020-03-24 14:12] LABS: Albumin Globulin Ratio 1.2 (0.9-2); Bilirubin,Total 1.1 mg/dl (0.2-1); Globulin 3.5 gm/dl (2.5-4.0); Phosphorus 2.8 mg/dl (2.5-4.9); Thyroid Stimulating Hormone 1.65 uIu/ml (0.300-4.500); Total Protein 7.8 gm/dl (6.4-8.2)
[2020-03-24] MEDS ORDERED: ONDANSETRON INJ 2 MG/ML 2 ML VIAL IV STA (14:56)
[2020-03-24] MEDS ORDERED: SODIUM CHLORIDE 0.9% 1000ML 1,000 ML IV ONE (16:47)
[2020-03-24] MEDS: MAGNESIUM SULFATE / D5W 1 GM/100 ML BAG IV SCH ×2 (18:43→19:44)
--- NOTE | 2020-03-24 18:53 | History & Physical Report ---
Date of Service March 24, 2020 Assessment & Plan (1) Alcohol withdrawal: Unclear history as patient reports last alcohol drink 10 days ago but given concerning history of alcohol withdrawal seizures and potentially not reliable history will treat for alcohol withdrawal. Librium tapering dose. Ativan PRN Gabapentin loading dose. Seizure protocol (2) Withdrawal seizures: Possible history of this therefore will monitor overnight on PCU. (3) Dehydration: Creatinine/BUN at baseline. Clinically dry. Banana bag given in ER. Nausea anticipated to improve with alcohol withdrawal medications above. If unable to take PO start IV fluids. (4) Hypomagnesemia: Mg level 1.3. Mg sulphate 2g IV given. Repeat with AM labs. (5) Hypokalemia: K 3.3 K Cl 20 meq IV given in ER. Monitor with am labs. (6) Anxiety and depression: Consult psychiatry as tried multiple medications without success in the past. Previously under psychiatry but lost to follow up per patient. (7) GERD (gastroesophageal reflux disease): Famotidine 20mg PO daily Admission and Anticipated Discharge Date Admission Date: 03/24/2020 History of Present Illness Primary Care Provider: NO PCP Jose Roberto Craven is a 24 year old male with alcohol use disorder who presents to the ER after concern for alcohol withdrawal. He was recently admitted for the same here from March 14-2019 and was discharged home with a PRN dose of Librium and gabapentin. Unfortunately he did not sampler pickup these medications as he reports the cost was too high and he is waiting for some more money to come in on March 29. He started getting shakes and tremors with nausea the same night he was discharged home. He reports it has been getting progressively worse since then. He denies any alcohol intake other than trying a few sips this morning to help with the alcohol withdrawal tremors. Main symptom of nausea and vomiting. No new abdominal pain, melena or bright red blood in stool. He reports cycling through constipation and diarrhea which is not unusual for him. His alcohol withdrawal symptoms including nausea, insomnia, anxiety, tremors have been getting progressively worse since discharge. Around 3am this morning he started having auditory hallucination and his friend noticed he was passed out and he had bitten his lips. He felt groggy similar to when he has had similar seizures in the past. Friend did not witness any seizure like activity. He usually drinks 1.75L vodka a day prior to his last admission. He smokes 3-5 cigarettes/day. He denies any illicit substance abuse. In the ER due to concern for alcohol withdrawal seizures he was given diazepam 5mg IV and lorazepam 1mg IV. He continues to have some minor tremors. He was referred to medicine for ongoing management for alcohol withdrawal. Allergies Allergy/AdvReac Type Severity Reaction Status Date / Time hydroxyzine [From Vistaril] AdvReac Severe Tachycardia Unverified 03/24/20 14:47 buspirone [From BuSpar] AdvReac Tachycardia Verified 03/14/20 01:16 Home Medications Medication Instructions Recorded Confirmed Type chlordiazepoxide HCl 10 mg PO TID PRN #7 cap 03/15/20 03/24/20 Rx gabapentin 600 mg PO UD #12 tab 03/15/20 03/24/20 Rx Past Med/Surg History Medical History Anxiety and depression ETOH abuse Withdrawal seizures Surgical History No significant past surgical history Family History Other No significant family history Social History Smoking Status: Never smoker Tobacco Type: Cigarettes Second Hand Exposure: No; Do You Dip or Chew Tobacco: No; Tobacco Cessation Education Requested by Patient: No Hx Alcohol Use: Yes Alcohol type: hard liquor Hx Substance Use: Yes Last Used Substance: Unknown Last Used Substance Other:: years ago Preferred Language: Yoruba Communication Ability: Effective Deep Tissue Massage Therapist Required: No Beliefs That Will Affect Care: None Current Living Situation: Alone Current Living Situation Comment: has 2 roomates Other Information That Helps Us Care for You: No Feels Safe at Home: Yes Safety Concerns: Feels Safe At This Time Assistive Devices: None Assistive Devices Comment: has hearing aids but has not worn in 1 1/2 yrs Review of Systems Review of Systems: All systems reviewed & are unremarkable except as noted in HPI & below Gastrointestinal: + abdominal pain (right sided), + nausea, + vomiting and + change in stools Physical Exam Constitutional: well developed and well nourished; no acute distress Eyes: PERRL, conjunctivae normal, anicteric sclerae ENMT: external ear and nose normal, oropharynx normal Neck: trachea midline, no thyromegaly Respiratory: normal respiratory effort, lungs clear to auscultation Cardiovascular: RRR, no murmur, no edema Gastrointestinal (Abdomen): Inspection/Auscultation: abdomen normal to inspection and normal bowel sounds; abdomen not distended Percussion/Palpation: + abdomen tender (RLQ (constant since started to drink alcohol again, no worse than usual)) and abdomen soft; no guarding and abdomen not rigid Musculoskeletal: no cyanosis or clubbing, extremities motor strength 5/5 Skin: no rashes, warm and dry Neurologic: moves all extremities and awake Speech / Cognition: normal speech Motor/Sensory: + tremor (postural mild); no pronator drift Psychiatric: Orientation: alert and oriented x 3 Eye Contact: + fair eye contact Affect: + anxious affect Mood: + anxious mood Hallucinations: no auditory hallucinations and no visual hallucinations Genitourinary: no CVA tenderness Results & Data Results & Data ([facility]) Vital Signs (Past 12 Hours) Vital Signs Temp Pulse Pulse Resp BP BP Pulse Ox 03/24/20 18:45 97 H 12 132/84 96 03/24/20 18:06 92 H 16 140/88 95 03/24/20 17:04 96 H 18 130/90 94 03/24/20 15:43 108 H 24 128/95 96 03/24/20 14:48 95 H 18 127/82 96 03/24/20 14:15 88 90 18 122/77 94 03/24/20 13:49 106 H 20 126/81 97 03/24/20 13:35 91 H 20 141/93 H 97 03/24/20 13:06 102 H 16 151/89 H 96 03/24/20 12:39 36.5 C 91 H 18 149/92 H 95 Diagnostic Findings SINGLE VIEW CHEST IMPRESSION: No active disease in the chest. Code Status & VTE Plan Code Status Full VTE Prophylaxis Plan VTE Prophylaxis will be ordered: No Reason for no VTE drug order: Treatment not indicated Reason for no VTE mechanical prophylaxis: Treatment not indicated PG Care Time/CCT Total # of Minutes Spent Total Time Spent with Patient: Total time spent is greater than 50% in coordination of care (as documented) at patient's floor/unit and/or counseling patient: Coding Level of Care Code 40195 Initial Inpt Care Lvl 3 Diagnoses Alcohol withdrawal F10.239 Withdrawal seizures F19.231; R56.9 Complication of substance-induced condition: with delirium Dehydration E86.0 Hypomagnesemia E83.42 Hypokalemia E87.6 Anxiety and depression F41.9; F32.9 GERD (gastroesophageal reflux disease) K21.9 (1) Withdrawal seizures Complication of substance-induced condition: with delirium Qualified Code(s): F19.231 - Other psychoactive substance dependence with withdrawal delirium; R56. 9 - Unspecified convulsions
--- NOTE | 2020-03-24 20:14 | XRay Report ---
SINGLE VIEW CHEST CLINICAL HISTORY: Dyspnea. FINDINGS: An AP, portable, upright chest radiograph is compared to study dated 03/14/2020. The cardio mediastinal silhouette is unremarkable. The lungs and pleural spaces are clear. No pneumothorax is se en. The bony thorax is grossly intact. IMPRESSION: No active disease in the chest. ACT 112: Negative or not required by law. Electronically signed by: Harman Ansari M.D. 03/24/2020 8:12 PM
[2020-03-24] MEDS ORDERED: chlordiazePOXIDE ALCOHOL WITHDRAWL 50MG PO STA (20:40)
[2020-03-24] MEDS ORDERED: GABAPENTIN 1200MG ALCOHOL WITHDRAWAL LOAD PO STA (20:40)
[2020-03-24] MEDS ORDERED: ONDANSETRON INJ 2 MG/ML 2 ML VIAL IV PRN (20:40)
[2020-03-24] MEDS ORDERED: POLYETHYLENE (MIRALAX) 17 GM PACK PO PRN (20:40)
[2020-03-24] MEDS ORDERED: GABAPENTIN 600 MG TAB PO ONE (20:40)
[2020-03-24] MEDS: POTASSIUM CHLORIDE / WTR 10 MEQ/100 ML PLCT IV SCH ×2 (20:59→22:13)
[2020-03-24] MEDS ORDERED: FAMOTIDINE 20 MG TAB PO STA (21:49)
[2020-03-24] MEDS: FOLIC ACID 1 MG TAB PO SCH (22:42)
[2020-03-24] MEDS: THIAMINE HCL 100 MG TAB PO SCH (22:42)
[2020-03-24] MEDS: chlordiazePOXIDE HCl 25 MG CAP PO SCH (22:42)
[2020-03-25] MEDS: chlordiazePOXIDE HCl 25 MG CAP PO SCH ×4 (02:32→19:59)
[2020-03-25] MEDS: GABAPENTIN 600 MG TAB PO SCH ×3 (04:01→21:08)
[2020-03-25 06:39] LABS: Appearance Urine Turbid (Clear); Bacteria Urine Automated Negative (Negative); Bilirubin Urine Negative (Negative); Blood Urine Negative (Negative); Glucose Urine UA Negative (Negative); Ketones Urine 4+ (Negative); Leukocyte Esterase Urine Trace (Negative); Nitrite Urine Negative (Negative); RBC Urine Automated 0-4 /hpf (0-4); Specific Gravity Urine 1.023 (1.000-1.030); Urobilinogen Urine Negative (Negative); pH Urine 8.5 (4.5-7.5)
[2020-03-25 06:53] LABS: Amphetamines+Metham, Urine Neg (Neg); Barbiturates, Urine Neg (Neg); Benzodiazepine, Urine Pos (Neg); Cocaine, Urine Neg (Neg); MDMA (Ecstacy), Urine Neg (Neg); Methadone, Urine Neg (Neg); Opiate, Urine Neg (Neg); Phencyclidine, Urine Neg (Neg)
[2020-03-25 07:11] LABS: Color Urine Dark Yellow; Protein Urine Negative (Negative); Sulfosalicylic Acid Urine Negative (Negative)
[2020-03-25] MEDS: FAMOTIDINE 20 MG TAB PO SCH (08:16)
[2020-03-25] MEDS: THIAMINE HCL 100 MG TAB PO SCH (08:17)
[2020-03-25] MEDS: FOLIC ACID 1 MG TAB PO SCH (08:17)
[2020-03-25 08:29] LABS: Alanine Aminotransferase 81 U/L (12-78); Albumin Level 3.7 gm/dl (3.4-5.0); Aspartate Aminotransferase 105 U/L (15-37); BUN Creatinine Ratio 13.5 (10-20); Blood Urea Nitrogen 9 mg/dl (7-18); Calcium 9.1 mg/dl (8.5-10.1); Carbon Dioxide 26 mmol/L (21-32); Chloride 102 mmol/L (98-107); Creatinine Clr Calc Pharmacy 208.4 ml/min; Est GFR (African American) > 150.0; Est GFR (Non-African American) 130.2; Glucose 78 mg/dl (70-99); Magnesium 2.1 mg/dl (1.8-2.4); Potassium 3.1 mmol/L (3.5-5.1); Sodium 137 mmol/L (136-145)
[2020-03-25 08:32] LABS: Albumin Globulin Ratio 1.2 (0.9-2); Alkaline Phosphatase 78 U/L (45-117); Bilirubin,Total 1.3 mg/dl (0.2-1); Globulin 3.1 gm/dl (2.5-4.0); Total Protein 6.8 gm/dl (6.4-8.2)
[2020-03-25] MEDS ORDERED: POTASSIUM CHLORIDE CRTAB 20 MEQ TABCR PO STA (08:39)
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
--- NOTE | 2020-03-25 11:01 | Hospitalist Progress Note ---
Date of Service March 25, 2020 Assessment & Plan (1) Alcohol withdrawal: Patient is a 24 year old male with PMHx Alcohol abuse, Anxiety, Depression, and GERD who presented initially for concerns of alcohol withdrawal. He noted that his last drink was the morning of 03/23/20 around 03:00. He was recently discharged from [facility] on 03/15/20 for similar concerns, however, was unable to acquire Librium and Gabapentin after discharge due to costs. Alcohol Withdrawal -AWSS protocol with Librium Taper, Gabapentin, and Ativan PRN -Thiamine 100mg QD -Folate 1mg QD -Discussed at length today about cessation -Consider Naltrexone after discharge Dehydration -Secondary to vomiting prior to admission -Nausea and vomiting controlled with PRN Zofran -S/P 1L NSS bolus and Banana bag -Taking good PO Hypomagnesemia, Hypokalemia -Mg repleted in ED -Given 20meq KCl in ED and 40meq KCl this AM -Repeat BMP in AM Anxiety and Depression -Patient notes that he drinks to cope with his anxiety and depression -Notes it had recently worsened due to a break up with his previous partner -Psych consulted -Patient uninterested in pharmacotherapy at this time, but agreeable to therapy services upon discharge GERD -Continue Famotidine 20mg QD Dispo: Downgrade to Med/Surg FEN: HH diet DVT: Low risk Code: Full (2) Dehydration: (3) Hypomagnesemia: (4) Hypokalemia: (5) Anxiety and depression: (6) ETOH abuse: (7) GERD (gastroesophageal reflux disease): Admission and Anticipated Discharge Date Admission Date: March 24, 2020 Supervising Physician Co-Signing Physician Notes I personally examined the patient and verified all alexandra points of history and exam, discussed case, and agree with decision making with Dr Thomson feeling better less shaky. vitals noted nad heent nc at mmm breathing unlabored no accessory muscles good effort skin no rashes no pallor or icterus neuro no focal deficits mild tremor EtOH withdrawal - appears improving but hx and <72hrs from last drink - should continue to watch. ok for medical. follow into tomorrow otherwise as above Subjective Patient examined at the bedside. Was sleeping at initial time of evaluation, but easily arousable. Patient noting that he was feeling better than yesterday, though was still feeling "shaky" and anxious. Notes that he had some difficulties with sleeping due to "restless legs." Notes 5/10 abdominal cramping, but associates it primarily with vomiting. He has not had nausea or vomiting overnight. Review of Systems Constitutional: + body aches; no fever, no chills and no weakness Eyes: no worsening vision Ear, Nose, Mouth, Throat: no dizziness Respiratory: no cough, no dyspnea and no pain on inspiration Cardiovascular: no chest pain, no dyspnea on exertion and no palpitations Gastrointestinal: + abdominal pain; no nausea, no vomiting, no constipation and no diarrhea/loose stools Genitourinary: no dysuria Neurologic: + generalized weakness and + tremor(s); no headache(s) Psychiatric: + depression, + anxiety and + hallucinations Physical Exam Constitutional: well developed, well nourished and cooperative; no acute distress Eyes: PERRL, conjunctivae normal, anicteric sclerae ENMT: external ear and nose normal, oropharynx normal Respiratory: normal respiratory effort, lungs clear to auscultation Cardiovascular: RRR, no murmur, no edema Gastrointestinal (Abdomen): Inspection/Auscultation: abdomen normal to inspection and normal bowel sounds; abdomen not distended Percussion/Palpation: + abdomen tender (TTP RUQ) and abdomen soft; no guarding and abdomen not rigid Musculoskeletal: no cyanosis or clubbing, extremities motor strength 5/5 Skin: no rashes, warm and dry Neurologic: PERRL, EOMI, accommodation nl, no face palsy, no dysarthria awake; not obtunded Motor/Sensory: + tremor; no pronator drift Psychiatric: A+Ox3, euthymic affect Results & Data Results & Data ([facility]) Vital Signs (Past 12 Hours) Vital Signs Temp Pulse Pulse Resp BP Pulse Ox 03/25/20 08:00 56 L 03/25/20 07:35 36.6 C 63 18 114/76 96 03/25/20 04:00 36.7 C 74 20 131/83 95 03/25/20 00:00 37 C 76 16 120/82 96 Resident Activity Tracking Resident Involvement: Resident Care Provided Care Provided: Adult Hospital Medicine (1) Alcohol withdrawal Complication of substance-induced condition: with delirium Qualified Code(s): F10.231 - Alcohol dependence with withdrawal delirium
[2020-03-25] MEDS ORDERED: LORazepam 1 MG/2 ML VIAL IV PRN (13:47)
--- NOTE | 2020-03-25 18:01 | Billing Data ---
Date of Service March 25, 2020 Coding Level of Care Code 03373 Subseq Hosp Care Lvl 3
[2020-03-26] MEDS: GABAPENTIN 600 MG TAB PO SCH ×2 (05:34→12:34)
[2020-03-26] MEDS: chlordiazePOXIDE HCl 25 MG CAP PO SCH ×2 (05:34→12:33)
[2020-03-26] MEDS: FAMOTIDINE 20 MG TAB PO SCH (08:42)
[2020-03-26] MEDS: THIAMINE HCL 100 MG TAB PO SCH (08:42)
[2020-03-26] MEDS: FOLIC ACID 1 MG TAB PO SCH (08:42)
--- NOTE | 2020-03-26 12:10 | Discharge Summary ---
Date of Service March 26, 2020 Admission HPI Per Admitting Provider Jose Roberto Craven is a 24 year old male with alcohol use disorder who presents to the ER after concern for alcohol withdrawal. He was recently admitted for the same here from March 14-2019 and was discharged home with a PRN dose of Librium and gabapentin. Unfortunately he did not diamond picker these medications as he reports the cost was too high and he is waiting for some more money to come in on March 29. He started getting shakes and tremors with nausea the same night he was discharged home. He reports it has been getting progressively worse since then. He denies any alcohol intake other than trying a few sips this morning to help with the alcohol withdrawal tremors. Main symptom of nausea and vomiting. No new abdominal pain, melena or bright red blood in stool. He reports cycling through constipation and diarrhea which is not unusual for him. His alcohol withdrawal symptoms including nausea, insomnia, anxiety, tremors have been getting progressively worse since discharge. Around 3am this morning he started having auditory hallucination and his friend noticed he was passed out and he had bitten his lips. He felt groggy similar to when he has had similar seizures in the past. Friend did not witness any seizure like activity. He usually drinks 1.75L vodka a day prior to his last admission. He smokes 3-5 cigarettes/day. He denies any illicit substance abuse. In the ER due to concern for alcohol withdrawal seizures he was given diazepam 5mg IV and lorazepam 1mg IV. He continues to have some minor tremors. He was referred to medicine for ongoing management for alcohol withdrawal. Admission Exam Per Admitting Provider Constitutional: well developed and well nourished; no acute distress Eyes: PERRL, conjunctivae normal, anicteric sclerae ENMT: external ear and nose normal, oropharynx normal Neck: trachea midline, no thyromegaly Respiratory: normal respiratory effort, lungs clear to auscultation Cardiovascular: RRR, no murmur, no edema Gastrointestinal (Abdomen): Inspection/Auscultation: abdomen normal to inspection and normal bowel sounds; abdomen not distended Percussion/Palpation: + abdomen tender (RLQ (constant since started to drink alcohol again, no worse than usual)) and abdomen soft; no guarding and abdomen not rigid Musculoskeletal: no cyanosis or clubbing, extremities motor strength 5/5 Skin: no rashes, warm and dry Neurologic: moves all extremities and awake Speech / Cognition: normal speech Motor/Sensory: + tremor (postural mild); no pronator drift Psychiatric: Orientation: alert and oriented x 3 Eye Contact: + fair eye contact Affect: + anxious affect Mood: + anxious mood Hallucinations: no auditory hallucinations and no visual hallucinations Genitourinary: no CVA tenderness Principal Diagnosis Alcohol Withdrawal Discharge Exam Constitutional well developed, well nourished and cooperative; no acute distress Eyes PERRL, conjunctivae normal, anicteric sclerae ENMT external ear and nose normal, oropharynx normal Respiratory normal respiratory effort, lungs clear to auscultation Cardiovascular RRR, no murmur, no edema Gastrointestinal (Abdomen) Inspection/Auscultation: abdomen normal to inspection and normal bowel sounds; abdomen not distended Percussion/Palpation: + abdomen tender (TTP RUQ) and abdomen soft; no guarding and abdomen not rigid Musculoskeletal no cyanosis or clubbing, extremities motor strength 5/5 Skin no rashes, warm and dry Neurologic PERRL, EOMI, accommodation nl, no face palsy, no dysarthria awake; not obtunded Motor/Sensory: + tremor; no pronator drift Psychiatric A+Ox3, euthymic affect Discharge Data Allergies Allergy/AdvReac Type Severity Reaction Status Date / Time hydroxyzine [From Vistaril] AdvReac Severe Tachycardia Unverified 03/24/20 14:47 buspirone [From BuSpar] AdvReac Tachycardia Verified 03/14/20 01:16 Consultations 03/24/20 16:41 ED Decision to Admit Stat 03/24/20 20:40 Consult Psychiatry Routine Hospital Course (1) Alcohol withdrawal: Patient is a 24 year old male with PMHx Alcohol abuse, Anxiety, Depression, and GERD who presented initially for concerns of alcohol withdrawal. He noted that his last drink was the morning of 03/23/20 around 03:00. He was recently discharged from [facility] on 03/15/20 for similar concerns, however, was unable to acquire Librium and Gabapentin after discharge due to costs. Alcohol Withdrawal -AWSS protocol with Librium Taper, Gabapentin, and Ativan PRN -Thiamine 100mg QD -Folate 1mg QD -Discussed at length today about alcohol cessation -Patient at time of discharge out of the timeframe for concerns of withdrawal -Recommended following up on outpatient therapy services and continued cessation of alcohol. Dehydration -Secondary to vomiting prior to admission -Nausea and vomiting controlled with PRN Zofran -S/P 1L NSS bolus and Banana bag on admission -Patient was taking good oral intake prior to discharge. Hypomagnesemia, Hypokalemia -Resolved after repletions. Anxiety and Depression -Patient notes that he drinks to cope with his anxiety and depression -Notes it had recently worsened due to a break up with his previous partner -Psych was consulted for this admission. -Patient uninterested in pharmacotherapy at this time, but agreeable to therapy services upon discharge -Recommend continued f/u with outpatient therapy. GERD -Famotidine 20mg QD while inpatient. (2) Dehydration: (3) Hypomagnesemia: (4) Hypokalemia: (5) Anxiety and depression: (6) ETOH abuse: (7) GERD (gastroesophageal reflux disease): Total Time Total Time Spent Total Time Spent (In Minutes): <30 Discharge Plan Discharge Items Patient Disposition: Home - Self-Care Reason For Visit: ALCOHOL WITHDRAWAL Discharge Diagnosis: Alcohol withdrawal Condition on Discharge: Good Activity: Per Instructions section Non-emergency contact: Primary Care Provider Call non-emergency contact if: your symptoms worsen Follow-up/Referrals: PCP,NO [Primary Care Provider] - Diet: Regular Addtl Attending Provider Instructions: Mr. Craven, It was our pleasure caring for you at [facility] from 03/24 - 03/25/20 for your concerns of alcohol withdrawal. On your admission to the hospital you had noted strong concerns regarding alcohol withdrawal and seizure like activity at home. While inpatient you were given medications to help prevent any worsening of withdrawal symptoms, IV fluids to keep you hydrated, an d your electrolytes repleted. You were also evaluated by our Psychiatrist to which you felt pharmacotherapy was not what you would want at this time, however, you were agreeable to outpatient services after discharge for therapy. At this time we believe that there are minimal concerns of any worsening of your symptoms due to Alcohol withdrawal and that you are safe for discharge. As these concerns are minimal, we believe that you will not require medications upon discharge. Your prior gabapentin and librium have been discontinued. We recommend that you seek therapy as advised by Psychiatry and to continue with alcohol cessation. If your symptoms worsen, please return to the ED for further evaluation. Pending Studies at Discharge: No Stand-Alone Forms: My [facility], Smoking Cessation Medications and DC Order Prescriptions: Discontinued gabapentin 600 mg tablet 600 mg PO UD Qty: 12 RF: 0 chlordiazepoxide HCl 10 mg capsule 10 mg PO TID PRN (Reason: anxiety) Qty: 7 RF: 0 Discharge Orders: Discharge Order (Routine); Ordered 03/26/20 Ordered By: Domingo Thomson Admission Data Admit Date/Time: 03/24/20 19:11 Attending Provider: Jeremiah Corona Admit Provider: Luis F Mcdowell Primary Care Provider: PCP,NO Other Providers: Luis F Mcdowell ; Aziza Mcelroy Other Interventions: Discharge Summary Assessment (RN) Last Done: 03/26/20 13:05 Supervising Physician Co-Signing Physician Notes I personally examined the patient and verified all alexandra points of history and exam, discussed case, and agree with decision making with Dr Thomson feeling better less shaky. feels ok w going home vitals noted nad heent nc at mmm breathing unlabored no accessory muscles good effort skin no rashes no pallor or icterus neuro no focal deficits tremor essentially resolved. EtOH withdrawal - appears improving and now fairly far removed from last drink. essentially nil on withdrawal sx now. safe for home. outpt f/u otherwise as above Resident Activity Tracking Resident Involvement: Resident Care Provided Care Provided: Adult Hospital Medicine
[2020-03-26 14:42] LABS: 7-Aminoclonaz, Confirm NEGATIVE ng/mL (<25); Hydro-Alp Ur, GC/MS NEGATIVE ng/mL (<25); Hydroxyethylflurazepam, Conf NEGATIVE ng/mL (<50); Hydroxymidazolam Ur, GC/MS NEGATIVE ng/mL (<50); Hydroxytriazolam NEGATIVE ng/mL (<50); Lorazepam, Ur GC/MS 568 ng/mL (<50); Nordiazepam, Confirm 128 ng/mL (<50); Oxazepam Ur, GC/MS NEGATIVE ng/mL (<50); Temazepam, Confirm 173 ng/mL (<50)
--- NOTE | 2020-03-26 17:19 | Billing Data ---
Date of Service March 26, 2020 Coding Level of Care Code D/C Day Management <30 mins
[2020-03-27] MEDS ORDERED: GABAPENTIN 600 MG TAB PO SCH (02:00)
[2020-03-28] MEDS ORDERED: GABAPENTIN 600 MG TAB PO SCH (14:00)
== END 2020-03-26 13:48 | disposition home or self-care (01) | DRG 897 ==
LOC: ED 12:11 → 2S 19:11 → SUATTDRO 19:11 → 2S 19:51 → 3W 03-25 15:36